=== PATIENT | male | born 1940 | race Caucasian/White ===

== ENCOUNTER 2016-10-24 06:04 | Outpatient (CLI) | payer MEDICARE, OTHER ==
[~2016-10-24] VITALS: Ht 172.7 cm; Wt 69.6 kg
--- NOTE | ~2016-10-24 | CATH ---
Cardiac Diagnostic + PCI Report Demographics Patient Name KB Carmona Gender Male Date of 1940 Age 75 year(s) Patient Number [id number] Date of Study 10/24/2016 Visit Number [id number] Room Number G63[address] [place] [id number] Ht 172.7 cm Wt 69.7 kg Referring Fredi Rangel Diandra Primary Physician Physician MD Performing Fly Fuentes MD Secondary Physician Physician Diagnostic Fly Fuentes MD Assisting Physician Physician Interventional Fly Fuentes MD Physician Lime Spreader Physician Findings and Conclusions Diagnostic Findings and Conclusion intermediate CAD disease Diagnostic Recommendations IFR LAD Interventional Findings and Conclusion XB 3.5 IFR 0.93 Interventional Recommendations medical therapy Routine post perclose Procedure Description The patient was brought to the diagnostic cardiac catheterization-EP laboratory in the fasting, non-sedated state. Informed consent was obtained in the written and verbal form after the risks and benefits were explained. The patient had no further questions and agreed to proceed. The planned puncture-incision site(s) were shaved and prepped with ChloraPrep and draped in the usual sterile manner. Conscious sedation, supplemental oxygen, and pain control medications were delivered by a registered nurse under physician guidance. Surface ECG rhythm, blood pressure measurement, and pulse oximetry were monitored throughout the procedure. Arterial access. The access site was infiltrated with lidocaine. The vessel was entered with the Seldinger technique. A sheath was advanced into the vessel and used for catheter placement. Selective left coronary angiography. A catheter was advanced into the left coronary vessel ostium under Fluoroscopic guidance. Contrast was injected by hand. Images were obtained in multiple projections. Selective right coronary angiography. A catheter was advanced into the right coronary vessel ostium under fluoroscopic guidance. Contrast was injected by hand. Images were obtained in multiple projections. Left heart catheterization. A catheter was advanced across the aortic valve to the left ventricle under fluoroscopic guidance. Resting hemodynamics were obtained. iFR measurement was performed. The vessel was entered with a guiding catheter. The iFR wire was normalized and then advanced across the lesion. Measurements were taken. Arterial artery hemostasis was achieved. The patient was transferred to a regular nursing floor via cart accompanied by a nurse. The patient left the laboratory in stable condition. Diagnostic Cath Status: Elective Procedure Procedure Type Diagnostic procedure:Angiography:, Coronary Angios w/LHC PCI procedure:Additional Imaging:, FFR/iFR:, Initial Vessel Indications: Shortness of breath w/exertion. The procedure was explained in detail to the patient. Risks, complications and alternative treatments were reviewed. Written consent was obtained. Medications Reviewed with Patient prior to Procedure. Angiographic Findings Dominance: Right Cardiac Arteries and Lesion Findings LMCA: Large WNL LAD: Abnormal.medium mid 60-70% IFR 0.93 Diag 1 medium OK Lesion on Mid LAD: Mid subsection.70% stenosis . Devices used - Verrata Pressure Wire. Number of passes: 1. LCx: Abnormal.Large wnl Dominant OM 1 medium wnl RCA: Normal (0% Stenosis).small ND PDA medium for LCX wnl Coronary Tree Procedure Data Procedure Date Date: 10/24/2016Start: 08:31 AMEnd: 09:05 AM Entry Locations - Retrograde Percutaneous access was performed through the Right Femoral artery (Primary location). A 6 Fr sheath was inserted. Hemostasis was successfully obtained using Angio-Seal STS PLUS ([place]). Closure Comments: deployed by Rayna. Procedure Medications Order and Administration + + + + + !Time !Medication !Dosage !Route ! + + + + + !10/24/2016 08:27 !Versed !1 mg !I.V. ! !AM ! ! ! ! + + + + + !10/24/2016 08:28 !Fentanyl !50 mcg !I.V. ! !AM ! ! ! ! + + + + + !10/24/2016 08:46 !Angiomax (Bivalirudin) !52.5 mg !I.V. bolus ! !AM !(ACC_5) ! ! ! + + + + + !10/24/2016 08:49 !Angiomax (Bivalirudin) !1.75 mg/kg/hr!I.V. drip ! !AM !(ACC_5) ! ! ! + + + + + !10/24/2016 08:58 !Angiomax (Bivalirudin) ! !I.V. drip ! !AM !(ACC_5) ! ! ! + + + + + Devices Used - A6 Fr. BS JL 4 Diag. Catheterwas used for:Left coronary angiography. - A6 Fr. BS JR 4 Diag. Catheterwas used for:Right coronary angiography. - A6 Fr. JJ 3DRC Diag. Catheterwas used for:Right coronary angiography. - A6 Fr. BS Angled Pigtail Diag. Catheterwas used for:LV Pressures. - A6 Fr. XB 3.5 Guide Catheterwas used for:LAD Intervention. Contrast Material - Isovue 18541 ml Fluoroscopy Time: Diagnostic: 9:06 minutes. Total: 9:06 minutes. Fluoroscopy Dose: Diagnostic: 566 mGy. Total: 566 mGy. Estimated Blood Loss: 5 ml. Medical History Allergies - No known allergies. Risk Factors The patient risk factors include:physical activity, hypertension, last creatinine: 1.6 mg/dl, creatinine clearance: 39.33 ml/min, renal failure and former tobacco use. Admission Data Admission Date: 10/24/2016 Admission Time: 06:04 AM Admit Source: Other Insurance Payors: Medicare. Admission Medications + +------+------+ + + + + !Medication !Dosage!Times !Last !Last !Administered !Comments ! ! ! !Per !Delivery !Delivery ! ! ! ! ! !Day !Date !Time ! ! ! + +------+------+ + + + + !EFREN ! ! ! ! ! ! ! !Inhibitor ! ! ! ! ! ! ! !(any) ! ! ! ! ! ! ! + +------+------+ + + + + Clinical Evaluation Leading to Procedure - The patient's CAD presentation was assessed as: Unstable angina. - The patient's anginal syndrome during the past two weeks was assessed as: Class II according to the [place] Cardiovascular [employer] Classification System (CCS). Anti-anginal medications were prescribed during the past two weeks. The medication is: Other. LVA Segment Contractility 1 - Normal 3 - Mild 5 - Severe 7 - Dyskinesis hypokinesis hypokinesis 2 - 4 - Moderate 6 - Akinesis 8 - Aneurysm Hypokinesis hypokinesis Hemodynamics Condition: Rest O2 Consumption: Estimated: 205.91Heart Rate: 64 bpm Pressures (mmHg) +-----+ + !Site !Pressure ! +-----+ + !AO !116/62 (82) ! +-----+ + !LV !137/2 ,12 ! +-----+ + !LV !130/2 ,11 ! +-----+ + !AO !138/68 (98) ! +-----+ + !LV !132/1 ,10 ! +-----+ + Valve Gradients and Areas + +---------+---------+---------+ +---------+ + !Valve !Peak !Mean !Area !Index !Flow !Source ! + +---------+---------+---------+ +---------+ + !Aortic !0 !0 ! ! ! ! ! + +---------+---------+---------+ +---------+ + !Aortic !0 !0 ! ! ! ! ! + +---------+---------+---------+ +---------+ + Shunts Oxygen Values O2 Capacity 183.6 O2 Consumption 205.91 Discharge Data Discharge Date: 10/24/2016 Hospital Status: Outpatient Signatures dtt: Alfredo Bill (cardio) dtd: 10/24/16 0831 Physician Self Edit
[~2016-10-24 06:04] MED LIST: ASPIRIN EC81 MG PO; BENADRYL25 MG PO; CLARITIN10 MG PO; CO Q-10100 MG PO; GLUCOSAMINE &1 EAC1 PO; LEVOTHROID(SYN75 MCG PO; MELATONIN3 MG PO; RESTORIL15 MG PO; SAW PALMETTO C1 EACH PO; THERAGRAN-M1 TAB PO; VASOTEC10 MG PO; VITAMIN D1000 UNIT PO
[2016-10-24] MEDS ORDERED: PROBIOTIC ACID1 EAC3 PO (06:46)
== END 2016-10-24 12:16 | disposition disaster alternative care site (69) ==
LOC: GPOC 06:04 → GPCU 06:04 → GPOC 12:16
DX: I25.10 Atherosclerotic heart disease of native coronary artery without angina pectoris (principal); I12.9 Hypertensive chronic kidney disease with stage 1 through stage 4 chronic kidney disease, or unspecified chronic kidney disease; N18.3 Chronic kidney disease, stage 3 (moderate); E03.9 Hypothyroidism, unspecified; D63.1 Anemia in chronic kidney disease; Z79.82 Long term (current) use of aspirin; Z79.899 Other long term (current) drug therapy
CPT/HCPCS: C1760; C1769; C1887; J0583; J1644; J2001; J2250; J3010; J7030; J7060